=== PATIENT | male | born 1960 | race Caucasian/White ===

== ENCOUNTER 2019-11-09 07:08 | Day surgery (SDC) | payer BC ==
[~2019-11-09] VITALS: Ht 193 cm; Wt 123.9 kg
[2019-11-09] MEDS ORDERED: LIDOCAINE 1% MDV 20ML VIAL SC ONE (07:30)
[2019-11-09] MEDS ORDERED: BOOSTRIX/ADACEL VACCINE (DIPHTH/PERTUSS/ACELL/TETANUS) 0.5ML SYR IM ONE (11:00)
[2019-11-09] MEDS ORDERED: SERT-138 PO (11:05)
[2019-11-09 11:16] LABS: HEMATOCRIT 43.6 % (42.0-52.0); HEMOGLOBIN 15.3 g/dl (13.5-17.5); MEAN CORPUSCULAR HEMOGLOBIN 32.6 pg (27.0-33.0); MEAN CORPUSCULAR HGB CONC 35.1 g/dl (32.0-36.5); MEAN CORPUSCULAR VOLUME 92.8 fl (80.0-96.0); PLATELET COUNT, AUTOMATED 251 10^3/uL (150-450); WHITE BLOOD COUNT 7.1 10^3/uL (4.0-10.0)
[2019-11-09 11:27] LABS: INR 0.87; PARTIAL THROMBOPLASTIN TIME 26.4 SECONDS (25.0-38.4); PROTHROMBIN TIME 11.5 SECONDS (11.8-14.0)
[2019-11-09 11:50] LABS: BLOOD UREA NITROGEN 12 MG/DL (7-18); CALCIUM LEVEL 8.3 MG/DL (8.5-10.1); CARBON DIOXIDE LEVEL 24 MEQ/L (21-32); CHLORIDE LEVEL 107 MEQ/L (98-107); GLOMERULAR FILTRATION RATE > 60.0 (>56); GLUCOSE, FASTING 113 MG/DL (70-100); POTASSIUM SERUM 5.2 MEQ/L (3.5-5.1); SODIUM LEVEL 138 MEQ/L (136-145)
[2019-11-09] MEDS ORDERED: KEFL500C17 PO (12:27)
[2019-11-09] MEDS ORDERED: NORC1TAB7 PO (12:27)
[2019-11-09] MEDS ORDERED: ceFAZolin SOD 2 GM in IV 1 EA IV ONE ×2 (12:30→17:15)
--- NOTE | 2019-11-09 14:58 | REP ---
REASON: Assess for foreign body, status post laceration. Air density is seen in the soft tissues medially consistent with a clinically known wound. There is no evidence of a radiopaque foreign body. There is no evidence of a fracture. Electronically Signed by Joon Crow DO 11/09/2019 05:13 P
[2019-11-09] MEDS ORDERED: ceFAZolin 1GM VIAL (J0690 PER 500MG) As Ordered ONE (20:28)
[2019-11-09] MEDS ORDERED: ceFAZolin 2 GM/D5W 50 ML IV BAG (J0690 PER 500MG) As Ordered ONE (20:28)
[2019-11-09] MEDS ORDERED: MIDAZOLAM INJ 2MG/2ML VIAL (J2250 PER 1MG) As Ordered ONE (22:41)
[2019-11-09] MEDS ORDERED: HYDROmorphone HCL 2 MG/ML 1ML VIAL (J1170) As Ordered ONE (22:41)
[2019-11-09] MEDS ORDERED: ONDANSETRON 4MG/2ML VIAL As Ordered ONE (22:41)
[2019-11-09] MEDS ORDERED: propofoL 200 MG/20 ML VIAL As Ordered ONE (22:41)
[2019-11-09] MEDS ORDERED: LIDOCAINE 2% 100MG/5ML SDV (FOR ANES.) As Ordered ONE (22:41)
[2019-11-09] MEDS ORDERED: fentaNYL 100 MCG/2 ML INJECTION (J3010) As Ordered ONE (22:41)
[2019-11-09] MEDS ORDERED: dexameTHASONE 4 MG/ML 1ML VIAL (J1100 PER 1MG) As Ordered ONE (22:41)
[2019-11-09] MEDS ORDERED: ACETAMINOPHEN 1000MG 100ML IV BTL (OFIRMEV) (J0131 PER 10MG) As Ordered ONE (22:41)
[2019-11-09] MEDS ORDERED: LR 1,000 ML IV SCH (23:30)
[2019-11-09] MEDS ORDERED: fentaNYL 100 MCG/2 ML INJECTION (J3010) IV PRN (23:30)
[2019-11-09] MEDS ORDERED: ONDANSETRON 4MG/2ML VIAL IV PRN (23:30)
[2019-11-09] MEDS ORDERED: oxyCODONE 5MG TAB PO PRN (23:30)
[2019-11-09] MEDS ORDERED: HYDROMORPHONE HCL 0.5 MG/ 0.5 ML SYRINGE (J1170 PER 1) IV PRN (23:30)
[2019-11-09 23:45] VITALS: BP 152/99
[2019-11-10] VITALS (7 sets, daily range): BP systolic 118–148; BP diastolic 78–95
[2019-11-10] MEDS ORDERED: MORPHINE 2 MG/ML 1ML VIAL (J2270) IV PRN (00:30)
[2019-11-10] MEDS ORDERED: NORCO, ANEXSIA 5/325MG TABLET (HYDROcodone/ACETAMINOPHEN) PO PRN (00:30)
[2019-11-10] MEDS ORDERED: LR 1,000 ML IV SCH (00:30)
[2019-11-10] MEDS: NORCO, ANEXSIA 5/325MG TABLET (HYDROcodone/ACETAMINOPHEN) PO PRN ×2 (04:33→08:57)
[2019-11-10] MEDS ORDERED: HYDR-3713 PO ×2 (05:56→06:39)
[2019-11-10 09:06] LABS: BLOOD UREA NITROGEN 11 MG/DL (7-18); CALCIUM LEVEL 8.5 MG/DL (8.5-10.1); CARBON DIOXIDE LEVEL 26 MEQ/L (21-32); CHLORIDE LEVEL 106 MEQ/L (98-107); CREATININE FOR GFR 0.96 MG/DL (0.70-1.30); GLOMERULAR FILTRATION RATE > 60.0 (>56); GLUCOSE, FASTING 130 MG/DL (70-100); POTASSIUM SERUM 4.1 MEQ/L (3.5-5.1); SODIUM LEVEL 138 MEQ/L (136-145)
--- NOTE | 2019-11-10 10:26 | CR ---
DATE OF CONSULTATION: 11/09/2019 REASON FOR CONSULTATION: Laceration volar aspect of right distal forearm. HISTORY OF PRESENT ILLNESS: He is a 59-year-old right-hand dominant male, who this morning tripped and fell at his mother's cottage on [address] in [place], [place] where his right hand went through a window and he sustained a laceration. He was seen here by a PA in the emergency room. An open wound with obvious tendon involvement was visible in the wound. So, he called me to see him for this injury. No other injury. He does not complain of any numbness into his fingertips, volar or dorsally of the right hand distal to the wound. That is why I am here to evaluate him. PAST MEDICAL HISTORY: His past medical history is otherwise fairly unremarkable, other than some anxiety for which he takes sertraline. PAST SURGICAL HISTORY: He has had right shoulder surgery, AC repair, and an appendectomy in the distant past. ALLERGIES: No known drug allergies. SOCIAL HISTORY: He does not smoke or drink alcohol excessively. He lives in [place], [place]. 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 He is with children. REVIEW OF SYSTEMS: Health survey is otherwise negative. PHYSICAL EXAMINATION: He is an alert and oriented, pleasant male. Temperature is 96.8, pulse 98, respirations 18, blood pressure 169/79, oxygen saturation 99% on room air. His HEENT exam was benign. Normocephalic, atraumatic. His lungs were clear to auscultation. Heart was regular. I did detect a murmur. His right upper extremity examination showed about a 7 cm oblique laceration over the distal 4/5 of his right forearm, somewhat loculated ulnarly from the midline. As he attempts to flex and extend the wrist and fingers, you can see obvious large tendons that have been lacerated, at least two, and they were in the depths of the wound with some muscle involvement. However, careful distal examination shows that FDP and the FDS to the small finger, the ring finger, the long finger, index finger, and the thumb all appear to be functional. Actually, he can flex the wrist, but it is possible that he can detect some weakness to flexion in ulnar deviation. Sensory testing is entirely intact to light touch in the volar and dorsal aspects of his hand distally. LABORATORY STUDIES: Showed a white count of 7.1, hematocrit 43.6, platelets 251. Sodium 138, potassium 5.2, chloride 107, bicarbonate 24, BUN 12, creatinine 0.7, glucose 113, prothrombin time 11.5. His COVID test was negative. Tetanus has been given, and he will be receiving 2 gm of Kefzol shortly. IMPRESSION: This is a complex laceration, distal aspect right forearm on the ulnar side with probable laceration to the flexor carpi ulnaris and maybe partial tendon tear with some muscle involvement, possibly the palmaris. It did not appear to involve flexor function to the digits, nor does it appear to involve any significant sensory nerves, such as the main ulnar nerve or the median nerve. So, I talked to him at length about this injury. The nearest hand surgeon is [address], but he is comfortable with me caring for this here locally and I think this is something I could likely handle for him given the lack of any significant obvious nerve involvement and it does not appear to involve the flexor tendons to his digits, possibly could be the wrist flexors, such as the flexor carpi ulnaris seems to be involved by that primarily and, hopefully, we can repair this, as well as irrigate and clean the wound to help prevent infection. The understanding that doing surgery carries the risks of infection, damage to nerves, blood vessels, anesthetic complications, amongst others, which he understands. He is comfortable with going ahead and I think it is reasonable as well. I called the operative room, we have to wait a bit because of his nothing by mouth status. In the meantime, we are going to be giving him 2 gm Kefzol and keep the wound covered and proceed with surgery when it is safe according to anesthesia.
--- NOTE | 2019-11-10 10:49 | RO ---
DATE OF PROCEDURE: 11/09/2019 PREOPERATIVE DIAGNOSIS: Right distal forearm volar complex laceration with flexor tendon involvement. POSTOPERATIVE DIAGNOSIS: 1. Right volar distal forearm laceration. 2. Complete laceration of palmaris longus. 3. Laceration of the flexor digitorum superficialis to the long finger. 4. Laceration of the flexor digitorum superficialis to the ring finger. 5. Laceration of the flexor carpi ulnaris. PROCEDURE: 1. Irrigation and debridement of complex volar distal forearm laceration. 2. Repair of the flexor carpi ulnaris. 3. Repair of the flexor digitorum superficialis to the ring finger. 4. Repair of the flexor digitorum superficialis to the long finger. 5. Repair of the palmaris longus tendon. SURGEON: Dr. Patito Zhao CASH APPLICATIONS SPECIALIST: ANESTHESIA: General laryngeal mask anesthetic. COMPLICATIONS: None. FINDINGS: As noted above, there was a laceration of the palmaris longus, flexor digitorum superficialis to the long finger, flexor digitorum superficialis to the ring finger, and the flexor carpi ulnaris. DESCRIPTION OF PROCEDURE: Antibiotics were given intravenously preoperatively and a successful general laryngeal mask anesthetic was established. Tourniquet was placed on the right upper arm, but not utilized during the surgery. His right upper extremity was very carefully scrub prepped in the usual sterile fashion. Then after an appropriate time out, we began irrigating the wound using a 3 liter bag with Kefzol antibiotic irrigant. The wound was thoroughly debrided and inspected and there was no gross contamination noted. No glass fragments noted. We next began to explore the detail of the flexor tendon injuries. First, clearly the distal stump of the flexor carpi ulnaris was identified and pulled it to confirm that that was the tendon. Then we were able to find the proximal end by reaching deep underneath the deep fascia and proximal and retrieve the other stump. Then I placed a Josefina suture of 0 PDS. Another [place] suture of 0 PDS was placed in the distal stump and clamped and set aside for later repair. We then were able to locate the distal stump of another flexor tendon and by pulling on that tendon it was evident that this was the tendon to the flexor digitorum superficialis to the ring finger. Thus, a [place] suture was placed with 0 Prolene suture in the distal stump and then I was able to carefully explore and find the proximal stump. It was actually quite retracted under the deep fascia, but I was able to retrieve it. There was another branch of tendon that was lacerated. It was much longer, but it seemed to be emanating from the same muscle, but I could not localize the distal stump for that tendon. Then further radial we were able to identify another tendon stump by flexing the wrist and all the digits of the hand and indeed we found the distal stump and by pulling on this distal stump of the tendon it flexed the PIP joint to the long finger. This turned out to be about a 90% partial laceration because some fibers were still remaining and the rest of the tendon had retracted proximally underneath the deep fascia. I did have to extend the traumatic laceration longitudinally proximally staying superficial to the deep fascia and coagulating crossing veins. I was able to see the actual tendon through the fascia. I was able to reach under it with an Allis clamp and grab it, the remaining 90% of the tendon, and pull that into the zone of injury. I placed Josefina sutures of 0 Prolene on either end of this tendon and clamped those off and put them aside for later repair. Next, radially was the palmaris longus stump distally and again looking under the deep fascia proximally I was able to find the stump of the palmaris longus. It was quite retracted. I did have to release the fascia in order to retrieve this properly. A 2-0 Prolene suture was placed in a Josefina fashion at either stump of the palmaris longus. I then turned our attention to repairing these tendons. I started with the flexor carpi ulnaris and tied each limb individually with an overhand throw and my retail administrative assistant held tension as I tied one end and then I secured the second side. The sutures were cut short. In a similar fashion, I repaired the flexor digitorum superficialis to the ring finger and then the flexor digitorum superficialis to the long finger and then finally the palmaris longus. I copiously irrigated the wound again, making sure there was no excess debris. Then began closing the wound with interrupted 3-0 PDS suture in the subdermal tissues and then 3-0 nylon loosely bringing the skin edges together. The wounds were then covered with Adaptic and dry sterile bulky dressing and then a dorsal plaster splint was placed across the wrist and out to the tips of the fingers to hold the repair with some gentle wrist and digit flexion. At this point, the patient was then awakened from general laryngeal mask anesthetic after having tolerated the procedure well and then transferred to the recovery room in stable condition. There were no intraoperative complications. ADDENDUM: The ulnar neurovascular bundle was evident in the wound and it was not injured, but it was just deep to the repaired tendons. The flexor digitorum profundus tendons were not involved.
== END 2019-11-10 10:50 | disposition home or self-care (01) ==
LOC: M ED 07:08 → M SDC 12:22 → ENRESERV 16:29 → M MS5PR 17:00 → M SDC 11-10 10:50
PROVIDERS: ATTEND Orthopaedic Surgery
DX: S51.811A Laceration without foreign body of right forearm, initial encounter (principal); S66.124A Laceration of flexor muscle, fascia and tendon of right ring finger at wrist and hand level, initial encounter; S56.123A Laceration of flexor muscle, fascia and tendon of right middle finger at forearm level, initial encounter; S56.221A Laceration of other flexor muscle, fascia and tendon at forearm level, right arm, initial encounter; W01.110A Fall on same level from slipping, tripping and stumbling with subsequent striking against sharp glass, initial encounter; Y92.018 Other place in single-family (private) house as the place of occurrence of the external cause; Y93.9 Activity, unspecified; Y99.9 Unspecified external cause status; F41.9 Anxiety disorder, unspecified; Z79.899 Other long term (current) drug therapy; Z91.81 History of falling
CPT/HCPCS: 13121; 25260; 26356; 26370; 36415; 73090; 80048; 85027; 85610; 85730; 86850; 86900; 86901; 90472; 90715; 96365; 99284; J0131; J0690; J1100; J1170; J2250; J2405; J3010; U0002